=== PATIENT | female | born 1950 | race African-American/Black ===

== ENCOUNTER 2020-10-17 18:23 | Emergency (ER) | payer MEDICARE, SELFPAY ==
[2020-10-17 18:58] LABS: #Lymphocytes 1.2 thou/uL (1.20-3.40); #Monocytes 0.7 thou/uL (0.11-0.59); #Neutrophils 9.5 thou/uL (1.40-6.50); %Basophils 0.2 % (0.0-1.0); %Eosinophils 0.1 % (0.0-10.0); %Lymphocytes 10.2 % (21.0-51.0); %Monocytes 5.9 % (0.0-10.0); %Neutrophils 83.7 % (42.0-75.0); ALT (SGPT) 44 U/L (8-55); AST (SGOT) 79 U/L (5-34); Albumin 3.4 g/dL (3.4-4.8); Alkaline Phosphatase 83 U/L (40-110); Anion Gap 18 mmol/L (10-20); BUN (Urea Nitrogen) 54 mg/dL (9.8-20.1); Bilirubin, Total 0.4 mg/dL (0.2-1.2); Calc. Creatinine Clearance 0 mL/min (70-130); Calcium 8.7 mg/dL (7.8-10.44); Carbon Dioxide 17 mmol/L (23-31); Chloride 110 mmol/L (98-107); Globulin 3.7 g/dL (2.4-3.5); Glucose 265 mg/dL (83-110); Hemoglobin 11.4 g/dL (12.0-16.0); Mean Corpuscular HGB CONC 29.9 g/dL (32.0-36.0); Mean Corpuscular Volume 76.9 fL (78.0-98.0); Platelet Count 181 thou/uL (130-400); Potassium 4.2 mmol/L (3.5-5.1); Protein, Total 7.1 g/dL (5.8-8.1); RBC Distribution Width 14.1 % (11.5-14.5); Red Blood Cell (RBC) Count 4.98 mill/uL (4.20-5.40); Sodium 141 mmol/L (136-145); White Blood Cell (WBC) Count 11.4 thou/uL (4.8-10.8)
[2020-10-17 19:00] LABS: Hypochromia SLIGHT = 6-15 cells (100X) (0-5/hpf); MDiff Complete? YES; Microcytosis SLIGHT = 6-15 cells (100X) (0-5/hpf)
[2020-10-17] MEDS ORDERED: cefTRIAXone\\ROCEPHIN 2 GM VIAL ONE (19:25)
[2020-10-17] MEDS ORDERED: Sodium Chloride 0.9% 100 ML ONE ×2 (19:25→20:52)
[2020-10-17 20:05] LABS: CKMB 7.9 ng/mL (0-6.6)
[2020-10-17] MEDS ORDERED: Azithromycin 500 MG VIAL ONE (20:52)
== END 2020-10-17 22:50 | disposition short-term general hospital (02) ==
LOC: BURERS 18:23
DX: U07.1 COVID-19 (principal); J12.82 Pneumonia due to coronavirus disease 2019; R09.02 Hypoxemia; N17.9 Acute kidney failure, unspecified; M10.9 Gout, unspecified; E11.9 Type 2 diabetes mellitus without complications; I10 Essential (primary) hypertension; Z79.4 Long term (current) use of insulin; Z79.82 Long term (current) use of aspirin; Z79.899 Other long term (current) drug therapy
CPT/HCPCS: 36415; 71045; 80053; 82550; 82553; 83605; 84484; 85025; 87040; 93005; 96365; 96367; J0456; J0696; J3490